=== PATIENT | male | born 1995 | race African-American/Black ===

== ENCOUNTER 2018-09-30 03:04 | Emergency (ER) | payer BC, MEDICAID ==
[~2018-09-30] VITALS: Ht 177.8 cm; Wt 59.1 kg
[~2018-09-30 03:04] MED LIST: LAM25 PO
[2018-09-30 04:18] VITALS: BP 126/73
== END 2018-09-30 04:18 | disposition home or self-care (01) ==
LOC: ED 03:04
DX: S61.411A Laceration without foreign body of right hand, initial encounter (principal); Z86.69 Personal history of other diseases of the nervous system and sense organs; X58.XXXA Exposure to other specified factors, initial encounter; Y93.89 Activity, other specified; Y92.89 Other specified places as the place of occurrence of the external cause; Y99.8 Other external cause status
CPT/HCPCS: 90715

== ENCOUNTER 2018-10-01 17:35 | Emergency (ER) | payer BC, MEDICAID ==
[~2018-10-01] VITALS: Ht 177.8 cm; Wt 58.1 kg
[2018-10-01 18:04] VITALS: Ht 177.8 cm; Wt 58.1 kg
[2018-10-01 19:37] VITALS: BP 115/67
== END 2018-10-01 19:20 | disposition home or self-care (01) ==
LOC: ED 17:35
DX: S61.411D Laceration without foreign body of right hand, subsequent encounter (principal); X58.XXXD Exposure to other specified factors, subsequent encounter

== ENCOUNTER 2018-10-13 23:59 | Emergency (ER) | payer BC, MEDICAID ==
[~2018-10-13] VITALS: Ht 180.3 cm; Wt 59.4 kg
[2018-10-14 00:04] VITALS: BP 125/75; Ht 180.3 cm; Wt 59.4 kg
== END 2018-10-14 00:33 | disposition home or self-care (01) ==
LOC: ED 23:59
DX: S61.411D Laceration without foreign body of right hand, subsequent encounter (principal); X58.XXXD Exposure to other specified factors, subsequent encounter

== ENCOUNTER 2018-12-09 17:57 | Emergency (ER) | payer BC, MEDICAID ==
[~2018-12-09] VITALS: Ht 177.8 cm; Wt 59.0 kg
[2018-12-09 17:59] VITALS: Ht 177.8 cm; Wt 59.0 kg
[2018-12-09 20:14] VITALS: BP 135/82
== END 2018-12-09 20:14 | disposition home or self-care (01) ==
LOC: ED 17:57
DX: S43.004A Unspecified dislocation of right shoulder joint, initial encounter (principal); R56.9 Unspecified convulsions; X58.XXXA Exposure to other specified factors, initial encounter; Y93.89 Activity, other specified; Y92.89 Other specified places as the place of occurrence of the external cause; Y99.8 Other external cause status
CPT/HCPCS: G0500; J2060; J2270; J2405; J3490; J7030; Q0092

== ENCOUNTER 2019-06-24 14:18 | Emergency (ER) | payer BC, MEDICAID ==
[~2019-06-24] VITALS: Ht 180.3 cm; Wt 58.5 kg
[2019-06-24 14:38] VITALS: Ht 180.3 cm; Wt 58.5 kg
[2019-06-24 16:36] VITALS: BP 115/80
== END 2019-06-24 16:36 | disposition home or self-care (01) ==
LOC: ED 14:18
DX: S43.004A Unspecified dislocation of right shoulder joint, initial encounter (principal); X58.XXXA Exposure to other specified factors, initial encounter; Y93.89 Activity, other specified; Y92.89 Other specified places as the place of occurrence of the external cause; Y99.8 Other external cause status
CPT/HCPCS: J2250; J3490; J7030

== ENCOUNTER 2019-12-18 05:27 | Emergency (ER) | payer BC, MEDICAID ==
[~2019-12-18] VITALS: Ht 177.8 cm; Wt 58.7 kg
[2019-12-18 05:38] VITALS: Ht 177.8 cm; Wt 58.7 kg
[2019-12-18 07:11] VITALS: BP 113/81
== END 2019-12-18 07:11 | disposition home or self-care (01) ==
LOC: ED 05:27
DX: S43.014A Anterior dislocation of right humerus, initial encounter (principal); X58.XXXA Exposure to other specified factors, initial encounter; Y93.89 Activity, other specified; Y92.89 Other specified places as the place of occurrence of the external cause; Y99.8 Other external cause status
CPT/HCPCS: J2405; J3010; Q0092

== ENCOUNTER 2020-02-09 22:19 | Emergency (ER) | payer OTHER ==
[~2020-02-09] VITALS: Ht 177.8 cm; Wt 58.2 kg
[2020-02-10 01:30] VITALS: BP 112/75
== END 2020-02-10 01:30 | disposition home or self-care (01) ==
LOC: ED 22:19
DX: S43.004A Unspecified dislocation of right shoulder joint, initial encounter (principal); Y93.89 Activity, other specified; Y92.89 Other specified places as the place of occurrence of the external cause; Y99.8 Other external cause status
CPT/HCPCS: J2405; J3010; Q0092

== ENCOUNTER 2020-02-12 09:14 | Emergency (ER) | payer MEDICAID ==
[~2020-02-12] VITALS: Ht 177.8 cm; Wt 58.1 kg
[2020-02-12 09:17] VITALS: Ht 177.8 cm; Wt 58.1 kg
[2020-02-12 10:02] VITALS: BP 115/81
== END 2020-02-12 10:02 | disposition home or self-care (01) ==
LOC: ED 09:14
DX: S43.004A Unspecified dislocation of right shoulder joint, initial encounter (principal); X58.XXXA Exposure to other specified factors, initial encounter; Y93.89 Activity, other specified; Y92.89 Other specified places as the place of occurrence of the external cause; Y99.8 Other external cause status

== ENCOUNTER 2020-04-21 12:05 | Emergency (ER) | payer BC, MEDICAID ==
[~2020-04-21] VITALS: Ht 177.8 cm; Wt 55.8 kg
[2020-04-21 12:13] VITALS: Ht 177.8 cm; Wt 55.8 kg
[2020-04-21 15:06] VITALS: BP 124/73
== END 2020-04-21 15:06 | disposition home or self-care (01) ==
LOC: ED 12:05
DX: S43.004A Unspecified dislocation of right shoulder joint, initial encounter (principal); W06.XXXA Fall from bed, initial encounter; Y93.89 Activity, other specified; Y92.89 Other specified places as the place of occurrence of the external cause; Y99.8 Other external cause status
CPT/HCPCS: J2270; J2704; Q0092

== ENCOUNTER 2020-07-02 19:16 | Emergency (ER) | payer BC, MEDICAID ==
[~2020-07-02] VITALS: Ht 180.3 cm; Wt 58.2 kg
[2020-07-02 19:20] VITALS: Ht 180.3 cm; Wt 58.2 kg
[2020-07-02 21:06] VITALS: BP 108/65
== END 2020-07-02 21:24 | disposition home or self-care (01) ==
LOC: ED 19:16
DX: S43.004A Unspecified dislocation of right shoulder joint, initial encounter (principal); X58.XXXA Exposure to other specified factors, initial encounter; Y93.89 Activity, other specified; Y92.89 Other specified places as the place of occurrence of the external cause; Y99.8 Other external cause status
CPT/HCPCS: J1170; J2704; J7050; Q0092

== ENCOUNTER 2020-07-06 15:32 | Emergency (ER) | payer BC, MEDICAID ==
[~2020-07-06] VITALS: Ht 180.3 cm; Wt 57.6 kg
[2020-07-06 15:42] VITALS: Ht 180.3 cm; Wt 57.6 kg
[2020-07-06 17:57] VITALS: BP 113/70
== END 2020-07-06 17:57 | disposition home or self-care (01) ==
LOC: ED 15:32
DX: S43.084D Other dislocation of right shoulder joint, subsequent encounter (principal); F90.9 Attention-deficit hyperactivity disorder, unspecified type; G40.909 Epilepsy, unspecified, not intractable, without status epilepticus; X58.XXXD Exposure to other specified factors, subsequent encounter
CPT/HCPCS: J3010; J3490; J7040; Q0092

== ENCOUNTER 2020-08-09 11:45 | Emergency (ER) | payer BC, MEDICAID ==
[~2020-08-09] VITALS: Ht 175.3 cm; Wt 58.1 kg
[2020-08-09 11:50] VITALS: Ht 175.3 cm; Wt 58.1 kg
[2020-08-09 12:49] LABS: BASOPHIL % 0.3 % (0-2); PLATELET COUNT 280 x10^3mcL (130-400); RED CELL DISTRIBUTION WIDTH 13.1 % (11.5-14.5)
[2020-08-09 12:58] LABS: CALCIUM 9.2 mg/dL (8.5-10.1); CHLORIDE SERUM 103 mmol/L (98-107); CREATININE SERUM 1.1 mg/dL (0.7-1.3); GFR1 > 60 mL/min; GLUCOSE SERUM 140 mg/dL (74-106); POTASSIUM SERUM 3.8 mmol/L (3.5-5.1); SODIUM SERUM 142 mmol/L (136-145)
[2020-08-09 13:03] LABS: ALBUMIN 4.4 g/dL (3.4-5.0); ALKALINE PHOSPHATASE 59 U/L (46-116); ALT/SGPT 24 U/L (16-63); AST/SGOT 23 U/L (15-37); BILIRUBIN TOTAL 0.4 mg/dL (0.20-1.00); MAGNESIUM 2.7 mg/dL (1.8-2.4)
[2020-08-09 14:10] LABS: microscopic required? YES; urine erythrocyte TRACE (NEGATIVE)
[2020-08-09 14:24] LABS: AMPHETAMINE QUAL UR NONE DETECTED (See below)
[2020-08-09 15:21] VITALS: BP 111/68
== END 2020-08-09 15:21 | disposition home or self-care (01) ==
LOC: ED 11:45
PROVIDERS: Emergency Medicine
DX: S43.084A Other dislocation of right shoulder joint, initial encounter (principal); S01.111A Laceration without foreign body of right eyelid and periocular area, initial encounter; S09.8XXA Other specified injuries of head, initial encounter; G40.909 Epilepsy, unspecified, not intractable, without status epilepticus; F12.20 Cannabis dependence, uncomplicated; F90.9 Attention-deficit hyperactivity disorder, unspecified type; W08.XXXA Fall from other furniture, initial encounter; Y93.89 Activity, other specified; Y92.89 Other specified places as the place of occurrence of the external cause; Y99.8 Other external cause status
CPT/HCPCS: 82962; G0480; J2001; J3010; J3490; Q0092

== ENCOUNTER 2020-08-17 09:09 | Emergency (ER) | payer BC, MEDICAID ==
[~2020-08-17] VITALS: Ht 177.8 cm; Wt 57.2 kg
[2020-08-17 09:12] VITALS: Ht 177.8 cm; Wt 57.2 kg
[2020-08-17 15:03] VITALS: BP 118/80
== END 2020-08-17 15:23 | disposition home or self-care (01) ==
LOC: ED 09:09
DX: S43.004A Unspecified dislocation of right shoulder joint, initial encounter (principal); X58.XXXA Exposure to other specified factors, initial encounter; Y93.89 Activity, other specified; Y92.89 Other specified places as the place of occurrence of the external cause; Y99.8 Other external cause status
CPT/HCPCS: J2704; J3010; J3490; Q0092

== ENCOUNTER 2020-12-11 16:03 | Emergency (ER) | payer BC, MEDICAID ==
[~2020-12-11] VITALS: Ht 180.3 cm; Wt 59.9 kg
[2020-12-11 16:09] VITALS: Ht 180.3 cm; Wt 59.9 kg
[2020-12-11] MEDS ORDERED: NAPROXEN375 MG PO (18:06)
[2020-12-11] MEDS ORDERED: ACETAMINOPHEN-H1 TA1 PO (18:06)
[2020-12-11 18:46] VITALS: BP 118/64
== END 2020-12-11 18:46 | disposition home or self-care (01) ==
LOC: ED 16:03
DX: S43.014A Anterior dislocation of right humerus, initial encounter (principal); R51.9 Headache, unspecified; X58.XXXA Exposure to other specified factors, initial encounter; Y93.89 Activity, other specified; Y92.89 Other specified places as the place of occurrence of the external cause; Y99.8 Other external cause status
CPT/HCPCS: J3490; J7030